=== PATIENT | male | born 1935 | race Caucasian/White ===

== ENCOUNTER 2023-11-19 16:41 | Emergency (ER) | payer OTHER, SELFPAY ==
[2023-11-19 16:44] VITALS: BP 179/74
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
[2023-11-19] MEDS: AUGMENTIN 875 MG/125 MG 1 TABLET PO (18:39)
== END 2023-11-19 21:07 | disposition home or self-care (01) ==
LOC: EMR 16:41
PROVIDERS: EMERGENCY PHYSICIAN Student in an Organized Health Care Education/Training Program; FAMILY PHYSICIAN Internal Medicine
DX: S51.811A Laceration without foreign body of right forearm, initial encounter (principal); V89.2XXA Person injured in unspecified motor-vehicle accident, traffic, initial encounter; Y92.410 Unspecified street and highway as the place of occurrence of the external cause; N40.0 Benign prostatic hyperplasia without lower urinary tract symptoms
CPT/HCPCS: 99283; 12004; 73090

== ENCOUNTER 2023-11-22 11:41 | Emergency (ER) | payer OTHER, SELFPAY ==
[2023-11-22 12:02] VITALS: BP 139/76
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
--- NOTE | 2023-11-22 14:36 | EDRN ---
Incentive spirometer to go.
== END 2023-11-22 14:59 | disposition home or self-care (01) ==
LOC: EMR 11:41
PROVIDERS: EMERGENCY PHYSICIAN Emergency Medicine; FAMILY PHYSICIAN Internal Medicine
DX: S22.41XA Multiple fractures of ribs, right side, initial encounter for closed fracture (principal); V49.9XXA Car occupant (driver) (passenger) injured in unspecified traffic accident, initial encounter; N40.0 Benign prostatic hyperplasia without lower urinary tract symptoms
CPT/HCPCS: 99283; 71046; 93005